=== PATIENT | female | born 1955 | race Caucasian/White ===

== ENCOUNTER 2018-01-02 12:10 | Day surgery (SDC) | END 2018-01-02 17:03 | disposition home or self-care (01) ==

== ENCOUNTER 2018-01-14 06:14 | Day surgery (SDC) | END 2018-01-14 10:55 | disposition home or self-care (01) ==

== ENCOUNTER 2018-07-15 06:17 | Day surgery (SDC) | END 2018-07-15 10:57 | disposition home or self-care (01) ==